=== PATIENT | male | born 1960 | race African-American/Black ===

== ENCOUNTER 2020-12-15 19:53 | Observation (INO) | payer BC ==
[~2020-12-15] VITALS: Ht 167.6 cm; Wt 66.9 kg
[2020-12-15 20:51] LABS: BASO % 0.2 % (0.0-2.0); EOS # 0.1 (0.0-0.7); EOS % 2.3 % (0-4.0); GRAN # 3.1 (1.4-6.5); GRAN % 59.2 % (42.2-75.2); HEMATOCRIT 37.9 % (42.0-52.0); HEMOGLOBIN 12.2 g/dl (13.5-18.0); LYMPH # 1.7 (1.2-3.4); LYMPH % 32.6 % (20.0-51.0); MEAN CELL VOLUME 70 fl (80.0-100.0); MEAN CORPUSCULAR HEMOGLOBIN 23 pg (27.0-31.0); MEAN CORPUSCULAR HGB CONC 32 g/dl (33.0-37.0); MEAN PLATELET VOLUME 9.9 fl (7.4-10.4); MONO # 0.3 (0.1-0.6); MONO % 5.5 % (1.7-9.3); PLATELET COUNT 295 K/mm3 (130-400); RED BLOOD COUNT 5.41 M/mm3 (4.20-5.60); REDCELL DISTRIBUTION WIDTH-CV 16.7 % (11.5-14.5)
[2020-12-15 20:57] LABS: INR 1.2 (0.8-3.0); PROTHROMBIN TIME 13.3 SECONDS (9.7-12.8)
[2020-12-15 20:59] LABS: PARTIAL THROMBOPLASTIN TIME 28.8 SECONDS (26.0-37.0)
[2020-12-15] MEDS ORDERED: CLARITIN 1010 MG/TAB PO (21:02)
[2020-12-15] MEDS ORDERED: ASPIRIN 81M81 MG/TA2 PO (21:02)
[2020-12-15 21:06] LABS: MUCOUS Present /lpf; PH 5 (5-8); SQUAMOUS EPITHELIAL None Seen /hpf; URINE APPEARANCE Hazy; URINE BACTERIA None Seen /hpf; URINE BILIRUBIN Negative (NEGATIVE); URINE BLOOD 3+ (NEGATIVE); URINE COLOR Yellow; URINE GLUCOSE Negative (NEGATIVE); URINE KETONE Negative (NEGATIVE); URINE LEUKOCYTE ESTERASE Negative (NEGATIVE); URINE NITRATE Negative (NEGATIVE); URINE PROTEIN(semi-quant) 2+ (NEGATIVE); URINE UROBILINOGEN Negative (NEGATIVE)
[2020-12-15 21:06] LABS: ALBUMIN 4.3 gm/dL (3.5-5.0); BILIRUBIN,TOTAL 0.5 mg/dL (0.0-1.0); CALCIUM 9.3 mg/dL (8.4-10.2); CREATININE, serum 0.89 (0.66-1.25); POTASSIUM 4.6 mmol/L (3.4-5.0); TOTAL PROTEIN 7.7 gm/dL (6.4-8.2)
[2020-12-15 21:19] LABS: COLLECTION METHOD CLEAN CATCH
--- NOTE | 2020-12-15 22:55 | NUR ---
PT ARRIVES TO ROOM 223 VIA WHEELCHAIR. PT DENIES ANY PAIN OR SOB. AMBULATES TO BR WITH SBA TO USE URINAL. GAIT IS STEADY. NO WEAKNESS NOTED. PT EDUCATED ON USE OF CALL LIGHT, DEMONSTRATES UNDERSTNANDING.
[2020-12-15 23:00] VITALS: BP 109/75; PULSE 66; TEMP 98.3
[2020-12-15] MEDS ORDERED: PROAIR HFA0.09 MG/AC (23:38)
--- NOTE | 2020-12-15 23:45 | NUR ---
PT AMBULATES TO BATHROOM ET BACK TO BED. PT HAS PASSED MEDIUM SIZED BLOODY CLOT, NO STOOL IS SEEN. PT IS ASYMPTOMATIC, DENIES ANY DIZZINESS. OCCULT STOOL IS COLLECTED @ THIS TIME.
[2020-12-16 03:11] VITALS: BP 118/75; PULSE 63; TEMP 98.1
[2020-12-16 07:26] LABS: BASO % 0.4 % (0.0-2.0); CREATININE, serum 0.8 (0.66-1.25); EOS # 0.1 (0.0-0.7); EOS % 1.2 % (0-4.0); GRAN # 4.5 (1.4-6.5); GRAN % 64.7 % (42.2-75.2); LYMPH % 28.9 % (20.0-51.0); MEAN CELL VOLUME 69 fl (80.0-100.0); MEAN CORPUSCULAR HEMOGLOBIN 23 pg (27.0-31.0); MEAN CORPUSCULAR HGB CONC 33 g/dl (33.0-37.0); MEAN PLATELET VOLUME 10.2 fl (7.4-10.4); MONO # 0.3 (0.1-0.6); MONO % 4.7 % (1.7-9.3); PLATELET COUNT 288 K/mm3 (130-400); POTASSIUM 4.3 mmol/L (3.4-5.0); RED BLOOD COUNT 4.85 M/mm3 (4.20-5.60); REDCELL DISTRIBUTION WIDTH-CV 15.9 % (11.5-14.5)
[2020-12-16 07:38] VITALS: BP 111/70; PULSE 65; TEMP 98.2
[2020-12-16 07:39] LABS: HEMATOCRIT 33.4 % (42.0-52.0)
--- NOTE | 2020-12-16 09:23 | NUR ---
Public Relations Supervisor met with patient to discuss discharge planning. Patient lives in [place] with his , Hodan (ph#[phone]) and sees Dr. Dominguez for primary care. Patient obtains medications from [facility] with no difficulties and does not use any DME. Patient is independent with ADLS and plans to return home upon discharge. Patient does not have Advance Directives and is not interested in completing DPOA-HC form at this time. Discharge Plan: Home with spouse
[2020-12-16 12:12] VITALS: BP 116/74; PULSE 66; TEMP 98.4
--- NOTE | 2020-12-16 12:33 | NUR ---
First visit from the bariatric nurse. No needs right now.
--- NOTE | 2020-12-16 12:50 | NUR ---
Assumed care at approximately 1230. Patient in bed resting. Alert and oriented x 3. Assessment complete. Patient denies needs at this time.
[2020-12-16 14:49] LABS: HEMOGLOBIN 10.6 g/dl (13.5-18.0)
[2020-12-16 14:55] LABS: HEMATOCRIT 32.6 % (42.0-52.0)
[2020-12-16] MEDS ORDERED: LEVAQUIN 750MG750 M1 PO (15:17)
--- NOTE | 2020-12-16 16:00 | NUR ---
Discharge education provided to patient. Educated on when to call provider and scheduling follow up appointments. Patient educated on new medication. All questions answered. Denies additional needs at this time. INT to LAC discontinued catheter tip intact. No further needs at this time. Patient out by wheelchair with surgical staff.
== END 2020-12-16 16:00 | disposition home or self-care (01) ==
LOC: COL.ER 19:53 → SURG 22:21
PROVIDERS: Internal Medicine Gastroenterology; Student in an Organized Health Care Education/Training Program; ADMIT Student in an Organized Health Care Education/Training Program
DX: K92.1 Melena (principal); K57.90 Diverticulosis of intestine, part unspecified, without perforation or abscess without bleeding; R55 Syncope and collapse; D57.40 Sickle-cell thalassemia without crisis; C61 Malignant neoplasm of prostate; J32.9 Chronic sinusitis, unspecified; E27.8 Other specified disorders of adrenal gland; J45.909 Unspecified asthma, uncomplicated; Z79.899 Other long term (current) drug therapy; Z79.82 Long term (current) use of aspirin; Z87.19 Personal history of other diseases of the digestive system
CPT/HCPCS: G0378; Q9967

== ENCOUNTER 2020-12-22 18:39 | Inpatient (IN) | payer BC ==
[~2020-12-22] VITALS: Ht 172.7 cm; Wt 68.2 kg
[~2020-12-22 18:39] MED LIST: ASPIRIN 81M81 MG/TA2 PO; CLARITIN 1010 MG/TAB PO; LEVAQUIN 750MG750 M1 PO; PROAIR HFA0.09 MG/AC
[2020-12-22 19:23] LABS: BASO % 0.4 % (0.0-2.0); EOS # 0.1 (0.0-0.7); EOS % 1.8 % (0-4.0); GRAN # 3.6 (1.4-6.5); GRAN % 65.2 % (42.2-75.2); LYMPH # 1.5 (1.2-3.4); LYMPH % 26.8 % (20.0-51.0); MEAN CELL VOLUME 70 fl (80.0-100.0); MEAN CORPUSCULAR HGB CONC 33 g/dl (33.0-37.0); MEAN PLATELET VOLUME 9.8 fl (7.4-10.4); MONO # 0.3 (0.1-0.6); MONO % 5.4 % (1.7-9.3); PLATELET COUNT 315 K/mm3 (130-400); RED BLOOD COUNT 3.99 M/mm3 (4.20-5.60); REDCELL DISTRIBUTION WIDTH-CV 16.9 % (11.5-14.5)
[2020-12-22 19:25] LABS: HEMOGLOBIN 9.1 g/dl (13.5-18.0); MEAN CORPUSCULAR HEMOGLOBIN 23 pg (27.0-31.0)
[2020-12-22 19:36] LABS: ALANINE AMINOTRANSFERASE 18 U/L (4-49); ALBUMIN 3.8 gm/dL (3.5-5.0); ALKALINE PHOSPHATASE 58 U/L (50-136); ANION GAP 6 mmol/L (7-16); AST,SGOT 26 U/L (15-37); BILIRUBIN,TOTAL 0.2 mg/dL (0.0-1.0); BLOOD UREA NITROGEN 13 mg/dL (9-20); CALCIUM 8.8 mg/dL (8.4-10.2); CARBON DIOXIDE 27 mmol/L (22-30); CHLORIDE 102 mmol/L (98-107); CREATININE, serum 0.85 (0.66-1.25); GLUCOSE 127 mg/dL (74-106); LIPASE 50 U/L (23-300); SODIUM 135 mmol/L (137-145); TOTAL PROTEIN 6.5 gm/dL (6.4-8.2)
[2020-12-22 19:39] LABS: C-REACTIVE PROTEIN < 0.5 mg/dL (0.0-0.9)
[2020-12-22 22:22] VITALS: BP 105/73; PULSE 69; TEMP 98.8
[2020-12-22] MEDS ORDERED: ASPIRIN 81M81 MG/TA2 PO (22:55)
--- NOTE | 2020-12-22 23:40 | NUR ---
PT ADMITTED TO THE UNIT, INTAKE AND ASSESSMENT COMPLETED. A&O X4, ORIENTED TO THE ROOM. PT DENIES ANY PAIN. STARTED BOWEL PREP, TOLERATING WELL. PT APPEARS WEAK AND SLUGGISH. DENIES ANY NEEDS AT THIS TIME. WILL CONTINUE TO MONITOR.
[2020-12-23] VITALS (14 sets, daily range): BP systolic 99–112; BP diastolic 52–73; PULSE 57–87; TEMP 97.7–99
[2020-12-23 00:16] LABS: HEMOGLOBIN 7.8 g/dl (13.5-18.0)
--- NOTE | 2020-12-23 00:49 | NUR ---
PT UP TO THE COMMODE. HAD ONE SMALL BLOOD CLOT BUT NO OTHER STOOL. WILL CONTINUE TO MONITOR.
--- NOTE | 2020-12-23 00:54 | NUR ---
TELEMETRY CALLED AT THIS TIME. PT WENT INTO [facility] RVR FOR A PERIOD OF TIME AND HAD A FEW PVCs. MANUEL, FROM TELE, STATES IT LOOKS LIKE IT COULD BE ARTIFACT. THIS RN INFORMED MAUNEL THAT HE DID JUST GET UP TO THE BATHROOM, HE THINKS IT COULD BE RELATED TO THAT. TIARA JUAN INFORMED. WILL CONTINUE TO MONITOR.
--- NOTE | 2020-12-23 06:13 | NUR ---
PT RESTING IN BED AT THIS TIME. TRANSFUSION COMPLTETED AND WENT WELL. NS RUNNING AT 150ML/HR. PT DENIES ANY NEEDS AT THIS TIME.
--- NOTE | 2020-12-23 06:50 | NUR ---
Report with LINDA Dukes. Pt sitting up in bed, awake and alert, reports just having another BM which is liquid, bloody. IVF's infusing per orders. No further needs reported. Call light in reach.
[2020-12-23 06:53] LABS: BASO % 0.2 % (0.0-2.0); EOS % 0.4 % (0-4.0); GRAN # 7.7 (1.4-6.5); GRAN % 79.5 % (42.2-75.2); LYMPH # 1.5 (1.2-3.4); LYMPH % 15.9 % (20.0-51.0); MEAN CELL VOLUME 71 fl (80.0-100.0); MEAN CORPUSCULAR HGB CONC 33 g/dl (33.0-37.0); MEAN PLATELET VOLUME 9.5 fl (7.4-10.4); MONO # 0.4 (0.1-0.6); MONO % 3.6 % (1.7-9.3); PLATELET COUNT 257 K/mm3 (130-400); RED BLOOD COUNT 3.67 M/mm3 (4.20-5.60); REDCELL DISTRIBUTION WIDTH-CV 18.4 % (11.5-14.5)
[2020-12-23 07:01] LABS: HEMATOCRIT 26.2 % (42.0-52.0); HEMOGLOBIN 8.6 g/dl (13.5-18.0); MEAN CORPUSCULAR HEMOGLOBIN 23 pg (27.0-31.0)
--- NOTE | 2020-12-23 07:15 | NUR ---
Pt to endo for procedure via cart accompanied by LINDA Tello.
[2020-12-23 07:25] LABS: CALCIUM 8.3 mg/dL (8.4-10.2); CREATININE, serum 0.81 (0.66-1.25); POTASSIUM 3.8 mmol/L (3.4-5.0)
--- NOTE | 2020-12-23 08:00 | NUR ---
Pt back to room following procedure, awake and alert, drinks water without difficulty and asking for Jello. Pt denies pain at this time. VSS. IVF's infusing by gravity to left AC site without s/s of complications. Physical assessment unremarkable. No further needs reported. Call light in reach.
--- NOTE | 2020-12-23 11:47 | NUR ---
SW met with patient at bedside to discuss d/c plan. Patient has no current DME's or needs for any, nor does he have 02 needs. No anticipated DME's needed at time of d/c. Patient is ; he and his , Hodan ([phone]) live in [place] in a house with stairs. Patient's PCP is Holly Hackett and he receives his medications through [facility] pharmacy and has no difficulty affording them. Patient expressed interest in completing an MPOA form and SW will return to assist in completing it. *Anticipate patient will d/c home with no needs
--- NOTE | 2020-12-23 12:44 | NUR ---
First visit from the oscillograph technician. NO needs right now.
--- NOTE | 2020-12-23 17:38 | NUR ---
Pt sitting up in bed, denies pain or needs. Uneventful shift, tolerating food well. Call light in reach.
--- NOTE | 2020-12-23 19:37 | NUR ---
Report given to LINDA Dukes.
--- NOTE | 2020-12-23 22:58 | NUR ---
PT RESTING IN BED. STATES HE HAS NOT HAD A BOWEL MOVEMENT FOLLOWING THE COLONOSCOPY THIS MORNING, PT INSTRUCTED TO NOTIFY RN WHEN HE DOES. DENIES ANY NEEDS. WILL CONTINUE TO MONITOR.
[2020-12-24 00:57] VITALS: BP 108/61; PULSE 64; TEMP 98.5
[2020-12-24 04:33] VITALS: BP 105/69; PULSE 66; TEMP 98.6
[2020-12-24 06:53] LABS: BASO % 0.4 % (0.0-2.0); EOS # 0.2 (0.0-0.7); GRAN # 3.5 (1.4-6.5); GRAN % 62.8 % (42.2-75.2); LYMPH # 1.6 (1.2-3.4); LYMPH % 28.1 % (20.0-51.0); MEAN CELL VOLUME 72 fl (80.0-100.0); MEAN CORPUSCULAR HGB CONC 33 g/dl (33.0-37.0); MEAN PLATELET VOLUME 9.7 fl (7.4-10.4); MONO # 0.3 (0.1-0.6); MONO % 5.5 % (1.7-9.3); PLATELET COUNT 254 K/mm3 (130-400); RED BLOOD COUNT 3.17 M/mm3 (4.20-5.60); REDCELL DISTRIBUTION WIDTH-CV 18.5 % (11.5-14.5)
[2020-12-24 06:57] LABS: HEMATOCRIT 22.9 % (42.0-52.0); HEMOGLOBIN 7.5 g/dl (13.5-18.0); MEAN CORPUSCULAR HEMOGLOBIN 24 pg (27.0-31.0)
[2020-12-24 07:01] LABS: CALCIUM 8.5 mg/dL (8.4-10.2); CREATININE, serum 0.93 (0.66-1.25); POTASSIUM 4.1 mmol/L (3.4-5.0)
[2020-12-24 07:28] VITALS: BP 107/57; PULSE 58; TEMP 98.9
--- NOTE | 2020-12-24 08:08 | NUR ---
REPORT RECEIVED FROM LINDA TRIPP. PT AWAKE/ALERT RESTING IN BED. PT DENIES PAIN. HAS NO NEEDS AT THIS TIME. CALL TURNER IN REACH
--- NOTE | 2020-12-24 10:00 | NUR ---
PT AM LABS SHOWED 7.[address] BELTRAN NOTIFIED @ 0402. MESSAGE LEFT. PT VITALS NORMAL
[2020-12-24 12:56] VITALS: BP 125/77; PULSE 60; TEMP 98.6
[2020-12-24 14:12] LABS: HEMATOCRIT 24.4 % (42.0-52.0); HEMOGLOBIN 7.9 g/dl (13.5-18.0)
--- NOTE | 2020-12-24 15:33 | NUR ---
DISCHARGE INSTRUCTIONS REVIEWED W/PT. QUESTIONS INVITED AND ANSWERED. TELE AND IV REMOVED. [employer] WALKED PT TO CAR. WENT HOME WITH .
== END 2020-12-24 15:30 | disposition home or self-care (01) | DRG 378 ==
LOC: COL.ER 18:39 → MEDICAL 19:57
PROVIDERS: Internal Medicine Gastroenterology; Nurse Practitioner Primary Care; Physician Assistant; Student in an Organized Health Care Education/Training Program; ADMIT Family Medicine
PROC: 0DJD8ZZ Inspection of Lower Intestinal Tract, Via Natural or Artificial Opening Endoscopic (ICD-10-PCS; principal; 2020-12-23 07:30)
DX: K57.31 Diverticulosis of large intestine without perforation or abscess with bleeding (principal); D62 Acute posthemorrhagic anemia; G47.33 Obstructive sleep apnea (adult) (pediatric); K21.9 Gastro-esophageal reflux disease without esophagitis; J32.9 Chronic sinusitis, unspecified; N40.0 Benign prostatic hyperplasia without lower urinary tract symptoms; E27.9 Disorder of adrenal gland, unspecified; J30.2 Other seasonal allergic rhinitis; D57.3 Sickle-cell trait; N20.0 Calculus of kidney; K64.0 First degree hemorrhoids
CPT/HCPCS: 99232-AI; 99233-AI; 99239; G0378; J2704; J2765; J3010; J7030; P9016